=== PATIENT | female | born 1950 | race Caucasian/White ===

== ENCOUNTER → 2016-11-28 | Outpatient (CLI) | payer OTHER, MEDICARE ==
--- NOTE | 2016-11-28 17:19 | DX ---
Chest, Two Views, November 28, 2016 at 1131 hours History: Shortness of breath. Comparison: None. Findings: Cardiac silhouette is within normal range. Thoracic dextroscoliosis. Surgical clips gall bladder fossa from prior cholecystectomy. No pneumonia, congestive heart failure, pleural effusion, or pneumothorax. Benign-appearing calcification near the aortic arch. Impression: No focal pneumonia.
== END ==
LOC: GIMAGING 11:29
PROVIDERS: ATTEND Internal Medicine Geriatric Medicine
DX: R06.02 Shortness of breath (principal)
CPT/HCPCS: 71020-PO

== ENCOUNTER → 2017-01-01 | Outpatient (CLI) | payer OTHER, MEDICARE | LOC: FIMAGING 10:10 | DX: Z12.31 Encounter for screening mammogram for malignant neoplasm of breast (principal) | CPT/HCPCS: G0202 ==

== ENCOUNTER → 2017-01-18 | Outpatient (CLI) | payer OTHER, MEDICARE | LOC: BHFA 13:00 | PROVIDERS: ATTEND Internal Medicine Cardiovascular Disease | DX: R07.89 Other chest pain (principal) ==

== ENCOUNTER → 2017-01-30 | Outpatient (CLI) | payer OTHER, MEDICARE | LOC: BHFA 13:30 | PROVIDERS: ATTEND Internal Medicine Interventional Cardiology | DX: R07.89 Other chest pain (principal) | CPT/HCPCS: 78452; 93017; A9500 ==